=== PATIENT | female | born 1985 | race Two or more races ===

== ENCOUNTER → 2025-06-06 | Outpatient (CLI) | payer BC, SELFPAY ==
--- NOTE | 2025-06-06 14:30 | XR_ITS ---
Examination: MRI lumbar spine without contrast Date and time of exam: June 06, 2025, 1500 hours INDICATIONS: Low back pain several years worse the last year radiating down the right side to the leg and toes numbness in the toes Technique: Multiple MRI axial and sagittal sections lumbar spine. Sagittal T2-weighted images, TR 3500, TE 118 T1 weighted transverse sections, TR 688 T8.5, T2-weighted sagittal sections T1 weighted sagittal sections TR 621, TE 30 T2 axial sections, TR 4, 190, TE 84. Findings: Adequate alignment lumbar vertebral bodies Normal marrow signal lumbar vertebral bodies No lumbar fracture No lumbar disc desiccation Mild disc narrowing posteriorly L5-S1 No spondylolisthesis Axial images demonstrate no focal lumbar disc protrusion IMPRESSION: No lumbar fracture No spondylolisthesis Mild disc narrowing posteriorly L5-S1. No focal lumbar disc protrusion
== END | disposition home or self-care (01) ==
PROVIDERS: PCP Nurse Practitioner Family; Referring Provider Nurse Practitioner Family; Visit Provider Nurse Practitioner Family
DX: M48.07 Spinal stenosis, lumbosacral region (principal)
CPT/HCPCS: 72148